=== PATIENT | male | born 2000 | race Caucasian/White ===

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

== ENCOUNTER 2019-05-29 16:08 | Emergency (ER) | payer MEDICARE, OTHER ==
[2019-05-29 16:30] VITALS: BP 145/86
--- NOTE | 2019-05-29 16:50 | UC ---
Abdominal Pain Male HPI - HPI Summary HPI Summary: ONSET OF PERIUMBILICAL AND EPIGASTRIC ABDOMINAL PAIN THIS MORNING. PAIN RADIATES THROUGH TO HIS BACK. PATIENT HAS A HISTORY OF CYSTIC FIBROSIS AND DEVELOPMENTAL DELAY. PATIENT'S FATHER STATES HE HAS PANCREATITIS FREQUENTLY DUE TO HIS DIAGNOSIS OF CF. HE DID VOMIT TODAY. DENIES FEVER. NO SHORTNESS OF BREATH. NO URINARY SYMPTOMS. FOLLOWS WITH PULMONOLOGY IN [place]. - History of Current Complaint Chief Complaint: UCAbdominalPain Stated Complaint: VOMITING, BACK PAIN Time Seen by Provider: 05/29/19 16:24 Hx Obtained From: Patient, Family/Forestry Instructor - DAD, SISTER Onset/Duration: Sudden Onset, Lasting Hours, Still Present Timing: Constant Severity Initially: Moderate Severity Currently: Moderate Pain Intensity: 9 Pain Scale Used: 0-10 Numeric Location: Epigastric Radiates: Yes Radiates to: Back Character: Sharp Aggravating Factor(s): Nothing Alleviating Factor(s): Nothing Associated Signs And Symptoms: Positive: Back Pain, Nausea, Vomiting. Negative : Diaphoresis, Fever, Chest Pain, Urinary Symptoms, Decreased Appetite - Allergies/Home Medications Allergies/Adverse Reactions: Allergies Allergy/AdvReac Type Severity Reaction Status Date / Time No Known Allergies Allergy Verified 02/19/18 08:55 Home Medications: Home Medications Acetaminophen [Tylenol] 500 mg PO 05/29/19 [History] Ibuprofen 200 mg PO 05/29/19 [History] PMH/Surg Hx/FS Hx/Imm Hx - Additional Past Medical History Additional PMH: CYSTIC FIBROSIS, DEVELOPMENTAL DELAY - Surgical History Surgical History: Yes Surgery Procedure, Year, and Place: TONSILLECTOMY AND [facility]ENOIDECTOMY, [facility] - Family History Known Family History: Positive: Non-Contributory Negative: Blood Disorder - Social History Alcohol Use: None Substance Use Type: None Smoking Status (MU): Never Smoked Tobacco Have You Smoked in the Last Year: No Household Exposure Type: Cigarettes - Immunization History Most Recent Influenza Vaccination: 05/2016 Most Recent Pneumonia Vaccination: non Review of Systems All Other Systems Reviewed And Are Negative: Yes Constitutional: Positive: Negative Respiratory: Positive: Negative Cardiovascular: Positive: Negative Gastrointestinal: Positive: Abdominal Pain, Vomiting Genitourinary: Positive: Negative Physical Exam Triage Information Reviewed: Yes Appearance: Well-Appearing, No Pain Distress, Well-Nourished Vital Signs: Initial Vital Signs Temp 96.0 F 05/29/19 16:22 Pulse 72 05/29/19 16:22 Resp 16 05/29/19 16:22 BP 145/86 05/29/19 16:22 Pulse Ox 98 05/29/19 16:22 Vital Signs Reviewed: Yes Eyes: Positive: Conjunctiva Clear ENT: Positive: Hearing grossly normal Neck: Positive: Supple Respiratory Exam: Normal Cardiovascular Exam: Normal Abdomen Description: Positive: Soft, Other: - TTP PERIUMBILICAL AND EPIGASTRIC AREAS. NO REBOUND OR RIGIDITY. Negative: Distended, Guarding Musculoskeletal: Positive: No Edema Neurological: Positive: Alert Psychological: Positive: Normal Response To Family, Age Appropriate Behavior Skin: Negative: Rashes Abd Pain Male Course/Dx - Course Course Of Treatment: PATIENT WITH A HISTORY OF CF AND RECURRENT PANCREATITIS PRESENTS WITH SUDDEN ONSET OF PERIUMBILICAL/EPIGASTRIC ABDOMINAL PAIN TODAY ALONG WITH BACK PAIN AND VOMITING. CONCERN FOR ACUTE PANCREATITIS. PATIENT REQUIRES A HIGHER LEVEL OF SERVICE THAN WHAT IS AVAILABLE IN THE URGENT CARE. WILL GO TO THE ER BY PRIVATE CAR. PT OFFERED TRANSPORT TO THE ER BY AMBULANCE BUT DECLINES. ADVISED THAT BY NOT TRAVELING IN A MONITORED SETTING HE COULD BE RISKING WORSENING OF HIS CONDITION THAT COULD POSE A THREAT TO HIS LIFE, HEALTH AND MEDICAL SAFETY. HE VERBALIZES UNDERSTANDING AND CONTINUES TO DECLINE AMBULANCE TRANSFER. - Differential Dx/Clinical Impression Provider Diagnosis: Abdominal pain Discharge ED - Sign-Out/Discharge Documenting (check all that apply): Patient Departure All imaging exams completed and their final reports reviewed: No Studies - Discharge Plan Condition: Stable Disposition: TRANS HIGHER LVL OF CARE FAC Patient Education Materials: Abdominal Pain (ED) Referrals: Marcia Brewer DO [Primary Care Provider] - If Needed Additional Instructions: GO DIRECT[place] [facility] [place] FOR FURTHER EVALUATION. YOU HAVE DECLINED TRANSFER TO THE ER BY AMBULANCE. BE ADVISED THAT BY NOT TRAVELING IN A MONITORED SETTING YOU COULD BE RISKING WORSENING OF YOUR CONDITION THAT COULD POSE A THREAT TO YOUR LIFE, HEALTH AND MEDICAL SAFETY. - Billing Disposition and Condition Condition: STABLE Disposition: Trans Higher Lvl of Care Fac
== END 2019-05-29 16:45 | disposition short-term general hospital (02) ==
LOC: UCEAST 16:08
DX: R10.13 Epigastric pain (principal); R10.9 Unspecified abdominal pain; E84.9 Cystic fibrosis, unspecified; R62.50 Unspecified lack of expected normal physiological development in childhood
CPT/HCPCS: 99212; G0463

== ENCOUNTER 2019-05-29 17:06 | Emergency (ER) | payer MEDICARE ==
--- NOTE | 2019-05-29 18:03 | ED ---
Abdominal Pain/Male - HPI Summary HPI Summary: 19-year-old male with history of cystic fibrosis and developmental delay presents with his family reporting complaints of a headache with nausea and vomiting this morning. Father states that by midday the vomiting subsided but the patient started complaining of some epigastric pain and left-sided back pain. Patient has had multiple admissions for pancreatitis related to his cystic fibrosis. Father reports that he was sick with the stomach bug for a couple of days last week. Patient is followed by pulmonology in [place]. Denies fever, chills, chest pain, shortness of breath, cough, wheezing, diarrhea , dysuria, frequency, urgency, or hematuria. - History of Current Complaint Chief Complaint: EDAbdPain Stated Complaint: VOMITING, BACK PAIN PER PT FATHER Hx Obtained From: Patient, Family/Inspector [employer] Pain Intensity: 9 - Allergies/Home Medications Allergies/Adverse Reactions: Allergies Allergy/AdvReac Type Severity Reaction Status Date / Time No Known Allergies Allergy Verified 05/29/19 17:54 PMH/Surg Hx/FS Hx/Imm Hx Endocrine/Hematology History: Denies: Hx Diabetes Cardiovascular History: Reports: Hx Hypertension Comment Only: Other Cardiovascular Problems/Disorders - GRANDMOTHER DOES NOT KNOW OF ANY PROBLEMS Respiratory History: Reports: Hx Cystic Fibrosis, Other Respiratory Problems/ Disorders - PROBLEMS WITH BREATHING R/T POLYP IN NOSE Denies: Hx Chronic Obstructive Pulmonary Disease (COPD) GI History: Reports: Other GI Disorders - Pancreatitis secondary to CF Denies: Hx Ileostomy History: Denies: Hx Dialysis, Hx Renal Disease Sensory History: Denies: Hx Contacts or Glasses, Hx Hearing Aid Opthamlomology History: Denies: Hx Contacts or Glasses Neurological History: Reports: Hx Developmental Delay, Other Neuro Impairments/ Disorders - POSSIBLE AUTISM Psychiatric History: Reports: Hx Anxiety - Surgical History Surgery Procedure, Year, and Place: TONSILLECTOMY AND [facility]ENOIDECTOMY, [facility] Hx Anesthesia Reactions: Yes - HARD TIME TO WAKE UP AND DIFFICULTY CONTROLLING BLEEDING Infectious Disease History: No Infectious Disease History: Denies: Traveled Outside the [place] in Last 30 Days - Family History Known Family History: Positive: Non-Contributory - Social History Occupation: Disabled Lives: With Family Alcohol Use: None Substance Use Type: Reports: None Hx Tobacco Use: No Smoking Status (MU): Never Smoked Tobacco Have You Smoked in the Last Year: No Review of Systems Negative: Fever, Chills Negative: Chest Pain Negative: Shortness Of Breath, Cough Positive: Abdominal Pain, Vomiting, Nausea. Negative: Diarrhea Negative: dysuria, frequency, hematuria Musculoskeletal: Negative Skin: Negative Positive: Headache All Other Systems Reviewed And Are Negative: Yes Physical Exam - Summary Physical Exam Summary: GENERAL APPEARANCE: Alert, cooperative, pleasant young adult male who appears to be in no acute distress. EYES: Conjunctiva clear. No drainage. EARS: External auditory canals and tympanic membranes clear, hearing grossly intact. NOSE: No nasal discharge. THROAT: Pharynx normal. Tonsils surgically absent. Uvula midline. NECK: Neck supple, non-tender without lymphadenopathy. CARDIAC: Normal S1 and S2. No S3, S4 or murmurs. Rhythm is regular. There is no peripheral edema, cyanosis or pallor. Extremities are warm and well perfused. Capillary refill is less than 2 seconds. Peripheral pulses intact. LUNGS: Clear to auscultation without rales, rhonchi, wheezing or diminished breath sounds. ABDOMEN: Positive bowel sounds. Soft, nondistended, nontender. No guarding or rebound. No masses or hepatosplenomegally. MUSKULOSKELETAL: ROM intact to all extremities. No joint erythema or tenderness. Normal muscular development. Normal gait. BACK: Examination of the spine reveals no spinal deformity or tenderness, decreased range of motion or muscular spasm. NEUROLOGICAL: Strength and sensation symmetric and intact throughout. SKIN: Skin normal color, texture and turgor with no lesions or eruptions. Triage Information Reviewed: Yes Vital Signs On Initial Exam: Initial Vitals Temp Pulse Resp BP Pulse Ox 97.1 F 70 16 165/106 96 05/29/19 17:08 05/29/19 17:08 05/29/19 17:08 05/29/19 17:08 05/29/19 17:08 Vital Signs Reviewed: Yes Diagnostics - Vital Signs Vital Signs Temp Pulse Resp BP Pulse Ox 05/29/19 17:08 97.1 F 70 16 165/106 96 - Laboratory Result Diagrams: 05/29/19 18:12 05/29/19 18:12 Lab Statement: Any lab studies that have been ordered have been reviewed, and results considered in the medical decision making process. Abdominal Pain Male Course/Dx - Course Course Of Treatment: 19-year-old male with history of cystic fibrosis and developmental delay presents with his family reporting complaints of a headache with nausea and vomiting this morning. Father states that by midday the vomiting subsided but the patient started complaining of some epigastric pain and left-sided back pain. Patient has had multiple admissions for pancreatitis related to his cystic fibrosis. Father reports that he was sick with the stomach bug for a couple of days last week. Patient is followed by pulmonology in [place]. Denies fever, chills, chest pain, shortness of breath, cough, wheezing, diarrhea, dysuria, frequency, urgency, or hematuria. Afebrile. Hypertensive otherwise vital signs stable. At the time of his exam the patient was smiling and conversant denying any pain. On exam he had a soft nontender abdomen, normal back exam, and otherwise unremarkable exam. Labs showed a elevated WBC of 16.0 with an absolute neutrophil of 14.3, elevated RBC of 5.53, elevated glucose of 176, calcium 10.6, mildly elevated ALTs 67, elevated lipase of 885, a normal CRP of 6.00, and a urinalysis significant for 3+ glucose, trace ketones, 1+ protein. Reviewed these results with the family. Patient's last admission for pancreatitis on 08/18/2016 he had a lipase of 16.44 with an elevated CRP and was having persistent abdominal pain with nausea and vomiting. I discussed with the patient that with the father's recent illness patient symptoms were most likely from an acute gastroenteritis however with the elevated lipase cannot rule out pancreatitis at this time. The patient was pain -free throughout the course of his stay in the emergency room, had no further episodes of nausea or vomiting, and was able to take PO fluids well. Father states that he is very comfortable with taking the patient home and managing on a clear liquid diet for the next 3 days with a slow progression of infection a normal diet and does not wish to pursue admission at this time. I will send them home with ondansetron 4 mg 1 tablet every 6 hours as needed. He is to follow-up with his primary care provider in 3 days for recheck of symptoms. Anticipatory guidance and warning symptoms requiring return to the emergency room were reviewed with the family. Verbalize understanding and agreed with plan of care. - Diagnoses Differential Diagnosis/HQI/PQRI: Gall Bladder Disease, Pancreatitis, Other - Gastroenteritis Provider Diagnoses: Nausea & vomiting, Pancreatitis, Cystic fibrosis Discharge ED - Sign-Out/Discharge Documenting (check all that apply): Patient Departure Patient Received Moderate/Deep Sedation with Procedure: No - Discharge Plan Condition: Stable Disposition: HOME Patient Education Materials: Pancreatitis (ED), Acute Nausea and Vomiting (ED) Referrals: Marcia Brewer DO [Primary Care Provider] - 3 Days Additional Instructions: Your a white blood cell count was elevated and your serum lipase was elevated in the emergency room tonight which is suggestive of pancreatitis however I cannot also rule out the possibility of a gastroenteritis. Since your pain has improved, you have had no further episodes of vomiting, and are able to tolerate fluids I think it is reasonable to allow you to return home at this time. Drink plenty of fluids. You should remain on a clear liquid diet including soup broths, Jello, popsicles , and tamiko-rio with carbonation stirred out of it for the next 2-3 days. If you are still pain free and had no further vomiting you may then begin advancing to a bland diet including saltine crackers, toast, bananas, rice, and applesauce. Take ondansetron 4 mg 1 tablet by mouth every 6y hours as needed for nausea or vomiting. Follow up with your primary care provider in 3 days or reevaluation of your symptoms. Seek immediate medical attention in the emergency room if you develop fever greater than 100.5 F, have severe abdominal pain, persistent vomiting, blood in your vomit or stool, or any worsening of symptoms. - Billing Disposition and Condition Condition: STABLE Disposition: Home
[2019-05-29 18:18] LABS: ABS Monocytes 0.7 10^3/ul (0-0.8); ABS Neutrophils 14.3 10^3/ul (1.5-7.7); Eosinophil % 0.2 %; Hematocrit 47 % (42-52); Hemoglobin 16.4 g/dL (14.0-18.0); Mean Corpuscular HGB Conc 35 g/dL (31-36); Mean Corpuscular Hemoglobin 30 pg (27-31); Mean Corpuscular Volume 85 fL (80-94); Mean Platelet Volume 8.6 fL (7.4-10.4); Nucleated Red Blood Cells % 0.1; Platelet Count 252 10^3/uL (150-450); Red Blood Count 5.53 10^6 /uL (4.18-5.48); Red Cell Distribution Width 13 % (10-15)
[2019-05-29 18:41] LABS: Albumin 4.5 g/dL (3.2-5.2); Albumin/Globulin Ratio 1.4 (1-3); BUN/Creatinine Ratio 14.8 (8-20); Calcium 10.6 mg/dL (8.6-10.3); EGFR African American 133.6 (>60); EGFR Non-African American 110.4 (>60); Globulin 3.2 g/dL (2-4); Potassium 3.7 mmol/L (3.5-5.0); Total Bilirubin 0.4 mg/dL (0.2-1.0); Total Protein 7.7 g/dL (6.4-8.9)
[2019-05-29 20:00] LABS: Urine Appearance Cloudy; Urine Bacteria Absent (Absent); Urine Bilirubin Negative (Negative); Urine Blood Negative (Negative); Urine Color Yellow; Urine Glucose 3+(>=500 mg/dL) (Negative); Urine Ketones Trace (Negative); Urine Nitrite Negative (Negative); Urine Protein 1+(30 mg/dL) (Negative); Urine Red Blood Cell Absent (Absent); Urine Specific Gravity 1.022 (1.010-1.030); Urine Urobilinogen Negative (Negative); Urine White Blood Cell Absent (Absent)
[2019-05-29 21:22] VITALS: BP 157/103
== END 2019-05-29 21:21 | disposition home or self-care (01) ==
LOC: ED 17:06
DX: K85.90 Acute pancreatitis without necrosis or infection, unspecified (principal); E84.9 Cystic fibrosis, unspecified; R10.13 Epigastric pain; R11.2 Nausea with vomiting, unspecified; I10 Essential (primary) hypertension; F41.9 Anxiety disorder, unspecified; Z79.899 Other long term (current) drug therapy; R62.50 Unspecified lack of expected normal physiological development in childhood
CPT/HCPCS: 36415; 80053; 81003; 81015; 83690; 85025; 86140; 99212; 99283; G0463

== ENCOUNTER 2019-08-16 13:55 | Emergency (ER) | payer MEDICARE ==
[2019-08-16 14:08] VITALS: BP 166/97
--- NOTE | 2019-08-16 14:45 | UC ---
Hand/Wrist HPI - HPI Summary HPI Summary: right fifth finger shut in door 3 days ago--nail intact but significant amount of bruising does not appear to be in pain - History Of Current Complaint Chief Complaint: UCUpperExtremity Stated Complaint: FINGER INJURY Time Seen by Provider: 08/16/19 14:02 Hx Obtained From: Patient ?: No Mechanism Of Injury: crush injury Onset/Duration: Sudden Onset, Lasting Days - 3, Still Present Pain Intensity: 3 Pain Scale Used: 0-10 Numeric Character Of Pain: Unable To Describe Aggravating Factor(s): Movement Alleviating Factor(s): Rest Associated Signs And Symptoms: Positive: Swelling, Redness, Bruising Related History: Dominant Hand Right - Allergies/Home Medications Allergies/Adverse Reactions: Allergies Allergy/AdvReac Type Severity Reaction Status Date / Time No Known Allergies Allergy Verified 05/29/19 17:54 PMH/Surg Hx/FS Hx/Imm Hx - Additional Past Medical History Additional PMH: developmental delays Respiratory History: Asthma - Surgical History Surgical History: None Surgery Procedure, Year, and Place: TONSILLECTOMY AND ADENOIDECTOMY, [facility] - Family History Known Family History: Positive: Non-Contributory Negative: Blood Disorder - Social History Occupation: Disabled Lives: With Family Alcohol Use: None Substance Use Type: None Smoking Status (MU): Never Smoked Tobacco Have You Smoked in the Last Year: No Household Exposure Type: Cigarettes - Immunization History Most Recent Influenza Vaccination: 05/2016 Most Recent Pneumonia Vaccination: non Review of Systems All Other Systems Reviewed And Are Negative: Yes Constitutional: Positive: Negative Skin: Positive: Bruising - bruising right fifth finger Eyes: Positive: Negative ENT: Positive: Negative Respiratory: Positive: Negative Cardiovascular: Positive: Negative Gastrointestinal: Positive: Negative Genitourinary: Positive: Negative Motor: Positive: Negative Neurovascular: Positive: Negative Musculoskeletal: Positive: Arthralgia - right fifth finger, Edema - distal right fifth finger Neurological: Positive: Negative Psychological: Positive: Negative Is Patient Immunocompromised?: No Physical Exam Triage Information Reviewed: Yes Appearance: Well-Appearing, No Pain Distress, Well-Nourished Vital Signs: Initial Vital Signs Temp 98.6 F 08/16/19 14:02 Pulse 77 08/16/19 14:02 Resp 20 08/16/19 14:02 BP 166/97 08/16/19 14:02 Pulse Ox 98 08/16/19 14:02 Vital Signs Reviewed: Yes Eye Exam: Normal Eyes: Positive: Conjunctiva Clear ENT Exam: Normal ENT: Positive: Normal ENT inspection, Hearing grossly normal. Negative: Trismus , Muffled voice, Hoarse voice Neck exam: Normal Neck: Positive: Supple, Nontender Respiratory Exam: Normal Respiratory: Positive: Chest non-tender, No respiratory distress, No accessory muscle use Cardiovascular Exam: Normal Cardiovascular: Positive: RRR, Pulses Normal, Brisk Capillary Refill Musculoskeletal Exam: Other Musculoskeletal: Positive: Edema @ - right fifth finger Neurological Exam: Normal Neurological: Positive: Alert, Muscle Tone Normal Psychological Exam: Normal Skin: Positive: Other - bruising and subungal hematoma right 5th finger Diagnostics - Radiology No standard instances Radiology Interpretation Completed By: Radiologist - no fracture Hand/Wrist Course/Dx - Course Course Of Treatment: splint applient for protection and comfort, mid soap and water wash tylenol/ ibuprofen ice for pain follow finger and bp with Dr. Brewer this week - Differential Dx/Diagnosis Provider Diagnosis: Subungual contusion of fingernail, Hypertension Discharge ED - Sign-Out/Discharge Documenting (check all that apply): Patient Departure All imaging exams completed and their final reports reviewed: Yes - Discharge Plan Condition: Stable Disposition: HOME Patient Education Materials: Subungual Hematoma (ED), Contusion in Adults (ED) , Hypertension (ED) Referrals: Marcia Brewer DO [Primary Care Provider] - 2 Weeks - Billing Disposition and Condition Condition: STABLE Disposition: Home
== END 2019-08-16 14:45 | disposition home or self-care (01) ==
LOC: UCEAST 13:55
DX: S60.151A Contusion of right little finger with damage to nail, initial encounter (principal); I10 Essential (primary) hypertension; J45.909 Unspecified asthma, uncomplicated; W23.0XXA Caught, crushed, jammed, or pinched between moving objects, initial encounter; Y92.9 Unspecified place or not applicable
CPT/HCPCS: 73140; 99211; G0463